=== PATIENT | female | born 2000 | race Hispanic/Latino ===

== ENCOUNTER 2019-06-01 19:56 | Observation (INO) | payer MEDICAID ==
[~2019-06-01] VITALS: Ht 160 cm; Wt 59.4 kg
[2019-06-01 20:35] LABS: APPEARANCE,URINE Clear (CLEAR); BILIRUBIN,URINE Negative (NEGATIVE); COLOR,URINE Yellow (YELLOW); GLUCOSE, URINE (UA) Negative (NEGATIVE); KETONES,URINE Negative (NEGATIVE); LEUKOCYTE ESTERASE ,URINE Small (NEGATIVE); NITRATE,URINE Negative (NEGATIVE); OCCULT BLOOD,URINE Negative (NEGATIVE); PH,URINE 6.5 (5.0-8.0); PROTEIN,URINE Negative (NEGATIVE)
[2019-06-01 20:50] VITALS: BP 122/73
[2019-06-01 20:57] LABS: BACTERIA,URINE Few /HPF (None Seen); RBC,URINE None Seen /HPF (0-1); WBC,URINE 0-1 /HPF (0-1)
== END 2019-06-01 22:05 | disposition home or self-care (01) ==
LOC: LDH 19:56
PROVIDERS: ADMIT Obstetrics & Gynecology; ATTEND Obstetrics & Gynecology
DX: O36.8130 Decreased fetal movements, third trimester, not applicable or unspecified (principal); Z3A.22 22 weeks gestation of pregnancy
CPT/HCPCS: 76819; 81001; G0378 ×2

== ENCOUNTER 2024-07-05 06:04 | Emergency (ER) | payer MEDICAID ==
[~2024-07-05] VITALS: Ht 162.6 cm; Wt 74.8 kg
[2024-07-05 06:40] VITALS: BP 122/60; PULSE 85; RESP 18; TEMP 99.3; O2SAT 96
[2024-07-05] MEDS: morPHINE 2 MG SYG IM ONE (06:48)
--- NOTE | 2024-07-05 06:52 | ERN ---
ED Note History of Present Illness Stated Complaint: MOUTH PROBLEM Chief Complaint: Sore Throat Time Seen by MD: 06:18 Dictation: This is a 23-year-old female who came into the emergency room with severe oral ulcerations pain difficulty eating. Patient stated that she started developing painful oral source throughout she was seen at [facility] on Tuesday and received Benadryl as they thought it was allergy to amoxicillin. She also received prednisone and Z-Chris at some point. Nothing has helped chest severe difficulty with extensive ulcers and she also has a sore throat and pain when she swallows Temperature 98.9 pulse 100 respirations 18 blood pressure 131/91 with a pulse oximetry of 97% She had influenza last week Allergies: Coded Allergies: amoxicillin (Unverified Allergy, Unknown, 07/05/24) Home Meds Active Scripts Acetaminophen with Codeine (Acetaminophen-Cod #3 Tablet) 300 Mg-30 Mg Tablet, 1 TAB PO Q6HPRN PRN for pain for 3 Days, #14 TAB 0 Refills Prov:RAJAN PEDRO MD 07/05/24 Lidocaine HCl (Lidocaine HCl Viscous) 2 % Solution, 15 ML PO QID for mouth sore pain for 1 Day, #100 ML 0 Refills Prov:RAJAN PEDRO MD 07/05/24 Past Medical History Past Medical History: No Pertinent History Surgical History: None Family History: Negative Social History: Negative LMP: Jun 20, 2024 RN Note Reviewed/Agreed w/PFSH: Yes Review of System Dictation Constitutional: Negative for fever,chills, and weight loss Eyes: Negative for injury, pain,redness, and discharge ENT: Negative for injury,pain or swelling positive for mucosal ulcerations exudate associated with severe pain Cardiovascular: Negative for chest pain, palpitations, and edema Respiratory: Negative for shortness of breath, cough, and wheezing, Abdomen/GI: Negative for abdominal pain, nausea, vomiting, diarrhea, and constipation Back: Negative for injury and pain : Negative for injury, bleeding and discharge MS/Extremity: Negative for injury and deformity Skin: Negative for rash, and discoloration Neuro: Negative for headache, weakness, numbness, tingling, and seizure Psych: Negative for suicide ideation, homicidal ideation, and hallucinations Initial Vital Sign VS Vital Signs Date Time Temp Pulse Resp B/P (MAP) Pulse Ox O2 Delivery O2 Flow Rate FiO2 07/05/24 06:05 99.0 100 18 131/91 97 0 07/05/24 06:40 Room Air* 21 Physical Exam Dictation General: awake, alert, NAD Head/Face: Normocephalic, atraumatic Eyes: PERRL, EOMI, vision at baseline ENT: oral cavity extremely inflamed with excoriation, whitish areas throughout the inside of the mouth lips and on the tongue, TMs clear, no signs of infection Neck: Trachea midline, supple, no nuchal rigidity Cardiovascular: RRR, normal S1/S2, No MRGs, no JVD Respiratory: CTAB, no respiratory distress, No rales or wheezes Abdomen: Soft, non-tender, non-distended, normal bowel sounds, no guarding or rebound. Skin: Warm, dry, normal turgor, no rash MS/Extremity: Pulses equal, no cyanosis, neurovascular intact, FROM Neuro: COAx4, GCS 15, strength 5/5, CN 2-12 intact, normal cerebellar exam, normal gait, Psych: Normal behavior, mood, and affect normal Extremities-trace edema without any palpable cords, Homans sign is negative ED Course ED Course Orders Procedure Category Date Status Time Lidocaine Hcl 2% PHA 07/05/24 Complete Viscous (Lidocaine Hcl 07:00 Hydrocortisone 2.5% PHA 07/05/24 Complete Cream 28g (Hytone 2. 07:00 Morphine 2mg Syg PHA 07/05/24 Complete (Morphine 2mg Syg) 07:00 Current Medications Medications (Trade) Dose Ordered Sig/Renard Route PRN Reason Start Time Stop Time Status Last Admin Dose Admin Hydrocortisone (hyTONE 2.5% CREAM 28G) 1 appl ONCE ONCE TP 07/05/24 07:00 07/05/24 07:01 DC 07/05/24 06:59 Lidocaine HCl (Lidocaine HCl 2% Viscous) 15 ml ONCE ONCE PO 07/05/24 07:00 07/05/24 07:01 DC 07/05/24 06:58 Morphine Sulfate (morPHINE 2MG SYG) 2 mg ONCE ONCE IM 07/05/24 07:00 07/05/24 07:01 DC 07/05/24 06:48 Vital Signs Date Time Temp Pulse Resp B/P (MAP) Pulse Ox O2 Delivery O2 Flow Rate FiO2 07/05/24 06:40 99.3 85 18 122/60 96 Room Air* 0 21 07/05/24 06:05 99.0 100 18 131/91 97 0 This appears to be severe mucositis secondary to amoxicillin. Does not have any skin rash although this could be early Rashaad Madi syndrome. We will give a trial of viscous lidocaine, topical cortisone She would also benefit from pain medications and mucosal coating agents. Medical Decision Making MDM MDM: Differential diagnosis: Severe mucositis, early Rashaad Madi's secondary to amoxicillin autoimmune disease Rationale: Tests considered and ordered secondary to shared decision making include: Previous outside records reviewed: Old ER visits. Risk of complication and/or morbidity or mortality of patient management: None Medications-Per medication reconciliation Need for hospitalization: Patient does not meet criteria for hospitalization. Need for emergency major/minor surgery: No There are no social concerns with this patient. Prescription drug management Prescriptions will include symptomatic care Patient's prior external medical records from other ER visits were reviewed by me as indicated. Prior testing and results from previous visits were reviewed. Prior tests were taken into account with medical decision making and resource utilization, independent historian/historians were used to obtain complete medical history. I independently interpreted the test that were performed, results were reviewed by me and considered findings on radiology if ordered. Medical management and examination interpretation discussions were had by me with other qualified healthcare professionals as indicated for the patient's care. Problem List Problem List: (1) Mucositis oral (2) Allergic reaction to amoxicillin/clavulanic acid DX & DISP Disposition: Discharge Departure Impression: Primary Impression: Allergic reaction to amoxicillin/clavulanic acid Additional Impression: Mucositis oral Condition: Stable Scripts Acetaminophen with Codeine (Acetaminophen-Cod #3 Tablet) 300 Mg-30 Mg Tablet 1 TAB PO Q6HPRN PRN for pain for 3 Days, #14 TAB 0 Refills Prov: RAJAN PEDRO MD 07/05/24 Lidocaine HCl (Lidocaine HCl Viscous) 2 % Solution 15 ML PO QID for mouth sore pain for 1 Day, #100 ML 0 Refills Prov: RAJAN PEDRO MD 07/05/24 Additional Instructions: Patient and the caregiver have been informed of all the diagnostic tests and the imaging conducted during the today's visit to the emergency room and has verbalized understanding of the results I have personally reviewed and interpreted all diagnostic exams performed here in the ER today as well as the vital signs documented by the nursing staff. The patient is now being discharged to home and should follow up with the primary care physician or the specialist as directed by the ER staff. Follow-up with primary care provider in 1 to 2 days. Take medications as directed here in the emergency room. Okay to continue home medications unless otherwise discussed during your visit in the emergency room today. Return to your nearest emergency room if symptoms worsen or if there is no improvement. C all 911 if you need immediate assistance. Take Tylenol or Motrin [id number] as needed and if no contraindications are present. Increase oral hydration. A wound culture or urine culture was ordered here in the emergency room department please follow-up with primary care provider and advise them to get repeat ports from our facility. If you had any Steve wrap/splints that were applied here, please do not remove them until you see your primary care or specialty. Referrals: SELF,REFERRAL (PCP) RAJAN PEDRO MD Jul 05, 2024 06:52 SERENITY ANTUNEZ DO Jul 05, 2024 07:52
[2024-07-05] MEDS: LIDOCAINE HCL 2% VISCOUS 15 ML UDCUP PO ONE (06:58)
[2024-07-05] MEDS: hydroCORTISONE 2.5% CREAM 28G TP ONE (06:59)
[2024-07-05] MEDS ORDERED: LIDO20SO PO (07:09)
[2024-07-05] MEDS ORDERED: ACET-2079 PO (07:11)
== END 2024-07-05 08:00 | disposition home or self-care (01) ==
LOC: EDH 06:04
DX: K12.39 Other oral mucositis (ulcerative) (principal); T36.0X5A Adverse effect of penicillins, initial encounter; Z79.899 Other long term (current) drug therapy; Z88.0 Allergy status to penicillin; Y92.89 Other specified places as the place of occurrence of the external cause
CPT/HCPCS: 99283; 96372; J2270